=== PATIENT | male | born 1995 | race Caucasian/White ===

== ENCOUNTER 2016-12-26 09:16 | Emergency (ER) | payer OTHER ==
[2016-12-26] MEDS ORDERED: ONDANSETRON 4 MG/2 ML VIAL IVPUSH ONE (09:32)
[2016-12-26] MEDS ORDERED: SODIUM CHLORIDE 1,000 ML IV STA (09:33)
[2016-12-26 09:36] VITALS: BMI 22.1
--- NOTE | 2016-12-26 09:55 | PDOC ---
History of Present Illness - General History Source: Parent(s) Exam Limitations: No Limitations - History of Present Illness Initial Comments: 12/26/16 09:57 The patient is a 21-year-old male, with a significant past medical history of moderate developmental delays, cerebral palsy, epilepsy, and hx of seizures (on carbamazepine, 700 mg), who presents to the ED s/p having a seizure today. Mother states that she gave the pt his seizure medication this morning while at the breakfast table and reports that a few minutes later the patient experienced a seizure and one episode of vomiting. Mother states that the pt is usually very quiet after experiencing a seizure and does vomit throughout the day. Pts seizure was said to be violent, lasting 2-3 minutes, so mother decided to call EMS because she was scared. She denies any bleeding from the mouth, loss of consciousness, or head trauma. Mother states patient has been compliant with his seizure medication and had not had one for a year up until today. Pt was supposed to see his Neurologist later on today but mother called the office to leave a message about what happened this morning. Patient is able to walk but has issues with his left-side. Mother also reports that he has been experiencing cold symptoms for the last week and a associated dry cough. Mother denies that the patient is experiencing any fever, chills, diarrhea, or abdominal pain. Denies any shortness of breath or chest pain. Neurologist: Dr. Yves Albrecht ([facility]) <Virginia Zhang - Last Filed: 12/26/16 10:34> <Eugenia Medina - Last Filed: 12/26/16 12:04> - General Chief Complaint: Seizure Stated Complaint: SEIZURE Time Seen by Provider: 12/26/16 09:27 Past History <Virginia Zhang - Last Filed: 12/26/16 10:34> - Past Medical History Seizures: Yes - Immunization History Immunization Up to Date: Yes - Psycho/Social/Smoking Cessation Hx Anxiety: No Suicidal Ideation: No Smoking History: Never smoked Have you smoked in the past 12 months: No Information on smoking cessation initiated: No Hx Alcohol Use: No Drug/Substance Use Hx: No Substance Use Type: None <Eugenia Medina - Last Filed: 12/26/16 12:04> - Past Medical History Allergies/Adverse Reactions: Allergies Allergy/AdvReac Type Severity Reaction Status Date / Time No Known Allergies Allergy Verified 12/26/16 09:32 Home Medications: Ambulatory Orders Carbamazepine [Tegretol -] 700 mg PO BID 06/25/14 Review of Systems - Review of Systems Able to Perform ROS?: Yes Comments:: 12/26/16 09:58 GENERAL/CONSTITUTIONAL: No fever or chills. No weakness. HEAD, EYES, EARS, NOSE AND THROAT: No change in vision. No ear pain or discharge. No sore throat. CARDIOVASCULAR: No chest pain or shortness of breath. RESPIRATORY: No wheezing, or hemoptysis. (+)Dry cough GASTROINTESTINAL: No diarrhea or constipation. (+)nausea, vomiting GENITOURINARY: No dysuria, frequency, or change in urination. MUSCULOSKELETAL: No joint or muscle swelling or pain. No neck or back pain. SKIN: No rash NEUROLOGIC: No headache, vertigo, loss of consciousness, or change in strength/ sensation. (+)Seizure ENDOCRINE: No increased thirst. No abnormal weight change. HEMATOLOGIC/LYMPHATIC: No anemia, easy bleeding, or history of blood clots. ALLERGIC/IMMUNOLOGIC: No hives or skin allergy. <Virginia Zhang - Last Filed: 12/26/16 10:34> *Physical Exam - Vital Signs Last Vital Signs Temp Pulse Resp BP Pulse Ox 98.7 F 102 H 20 124/72 97 12/26/16 09:32 12/26/16 09:32 12/26/16 09:32 12/26/16 09:32 12/26/16 09:32 - Physical Exam Comments: 12/26/16 09:59 GENERAL: Awake, alert, atraumatic. HEAD: No signs of trauma EYES: PERRLA, EOMI, sclera anicteric, conjunctiva clear ENT: Auricles normal inspection, hearing grossly normal, nares patent, oropharynx clear without exudates. Moist mucosa. NECK: Normal ROM, supple, no lymphadenopathy, JVD, or masses LUNGS: Breath sounds equal, clear to auscultation bilaterally. No wheezes, and no crackles HEART: Regular rate and rhythm, normal S1 and S2, no murmurs, rubs or gallops ABDOMEN: Soft, nontender, normoactive bowel sounds. No guarding, no rebound. No masses EXTREMITIES: Extremities are atraumatic NEUROLOGICAL: Follows commands, speech clear, moves all for extremities. SKIN: Warm, Dry, normal turgor, no rashes or lesions noted <Virginia Zhang - Last Filed: 12/26/16 10:34> - Vital Signs Last Vital Signs Temp Pulse Resp BP Pulse Ox 98.7 F 102 H 20 124/72 97 12/26/16 09:32 12/26/16 09:32 12/26/16 09:32 12/26/16 09:32 12/26/16 09:32 <Eugenia Medina - Last Filed: 12/26/16 12:04> ED Treatment Course - RADIOLOGY Radiology Studies Ordered: 12/26/16 10:34 Chest X-Ray was reviewed by Dr. Medina and over-read by Radiology. Impression: No evidence of active pulmonary disease. <Virginia Zhang - Last Filed: 12/26/16 10:34> - LABORATORY CBC & Chemistry Diagram: 12/26/16 09:57 12/26/16 09:57 <Eugenia Medina - Last Filed: 12/26/16 12:04> Medical Decision Making - Medical Decision Making 12/26/16 09:47 21 yo M h/o cerebral palsy, seizure disorder , currently on tegretol 700 mg bid , here with siezure this am. lasted 3 min. was sitting at the kitchen table. generalized shaking, similar to prior siezures. following pt had emesis and now drowsy, confused, similar to prior postictal periods. no head trauma. no falls. did not bit tongue. last seizure one year ago. did have recent cough, cold like symptoms, and decreased sleep for one week. no fever or chills. no recent change to medications. follows with Dr. albrecht at [facility], had appt this afternoon. on exam, pt awake, moving all four ext. skin warm and dry head atraumatic, lung CTAB no wheeze or crackle, heart RRR no m/r/g. abd soft NT. nuero awake alert, speech clear. moveing all four ext. Facies symmetric. differential: breakthrough seizure due to decreased sleep and recent viral infection, pna, aspiration, electrolyte abnormality. plan cxr labs ivf, lytes. will d/w dr. albrecht. antiemetics as pt has h/o recurrent vomiting following seizures. reload po meds if tolerating po. if not will consider iv keppra. 12/26/16 12:00 pt awake alert back at baseline. left message for dr. albrecht, not in office. given re dose of home medication ( pt mother had with pt ) 700 mg tegretol. level pending. tolerating po. dc to home. <Eugenia Medina - Last Filed: 12/26/16 12:04> *DC/Admit/Observation/Transfer - Attestations Scribe Attestion: 12/26/16 10:02 Documentation prepared by Virginia Zhang, acting as medical consultant for Emergency Dept,Physician, . <Virginia Zhang - Last Filed: 12/26/16 10:34> - Discharge Dispostion Admit: No <Eugenia Medina - Last Filed: 12/26/16 12:04> Diagnosis at time of Disposition: Seizure - Discharge Dispostion Disposition: HOME - Patient Instructions Printed Discharge Instructions: Seizure Disorder -- Adult Additional Instructions: follow up with DR albrecht as scheduled. your tegretol level won't result for 48hours. dr. albrecht can call for results. you can call emergency room [phone] and let them know you were seen in ed on 12/26. return for any persistant vomiting, siezures or any concerns. continue taking tegretol 700 mg twice daily until you follow up with dr. albrecht.
[2016-12-26 10:47] LABS: BASOPHIL 0.4 % (0-2.0); EOSINOPHIL 3.8 % (0-4.5); MCH 29.4 pg (25.7-33.7); MEAN CELL VOLUME 86.6 fl (80-96); MEAN PLT VOLUME 8.6 fl (7.5-11.1); NEUTROPHILS 66.9 % (42.8-82.8); PLATELET COUNT 250 K/MM3 (134-434); RDW 13.4 % (11.9-15.9); WHITE BLOOD COUNT 3.8 K/mm3 (4.0-10.0)
[2016-12-26] MEDS ORDERED: ONDANSETRON 4 MG/2 ML VIAL ONE (11:04)
[2016-12-26 11:24] LABS: ALBUMIN 3.9 g/dl (3.4-5.0); ALK PHOS 118 U/L (45-117); ANION GAP 10 (8-16); BILIRUBIN,TOTAL 0.3 mg/dL (0.2-1.0); CALCIUM 8.8 mg/dL (8.5-10.1); CO2 26 mmol/L (21-32); COCKROFT - GAULT 118.12; CREATININE 0.8 mg/dL (0.7-1.3); GLUCOSE,RANDOM 91 mg/dL (74-106); SGOT/AST 24 U/L (15-37); SGPT/ALT 44 U/L (12-78); TOT PROT 6.9 g/dl (6.4-8.2)
[2016-12-26 13:25] VITALS: BP 108/56; PULSE 68; TEMP 98.4
== END 2016-12-26 12:10 | disposition home or self-care (01) ==
LOC: JER 09:16
PROC: 3E0337Z Introduction of Electrolytic and Water Balance Substance into Peripheral Vein, Percutaneous Approach (ICD-10-PCS; principal; 2016-12-26)
PROC: 3E033GC Introduction of Other Therapeutic Substance into Peripheral Vein, Percutaneous Approach (ICD-10-PCS; 2016-12-26)
DX: G40.802 Other epilepsy, not intractable, without status epilepticus (principal); G80.8 Other cerebral palsy; R62.59 Other lack of expected normal physiological development in childhood
CPT/HCPCS: 36415; 71010-TC; 80053; 80156; 85025; 96361; 96374; 99283-25

== ENCOUNTER 2019-10-02 17:54 | Emergency (ER) | payer OTHER ==
[2019-10-02] MEDS ORDERED: ONDANSETRON 4 MG/2 ML VIAL IVPUSH ONE (18:22)
[2019-10-02] MEDS ORDERED: SODIUM CHLORIDE 0.9% 500 ML INFUS.BAG IV ONE (18:22)
--- NOTE | 2019-10-02 18:26 | PDOC ---
History of Present Illness - General Stated Complaint: SEIZURE Time Seen by Provider: 10/02/19 18:21 History Source: Parent(s), EMS, Family - History of Present Illness Initial Comments: 10/02/19 18:23 24-year-old male, with a significant past medical history of moderate developmental delays, cerebral palsy, epilepsy, and hx of seizures (on carbamazepine, 800/700 mg), who presents to the ED s/p having a generalized seizure today at 5pm. Mother notes he was in his usual state of health, without recent illnesses; last night he went to bed late around 1030pm which is not his usual. at approx 5pm, he had acute onset of generalized tonic clonic seizure lasting about 2-3 minutes, foaming at the mouth and eyes rolling back. no head trauma. has been postictal since, with several episodes of nausea and NBNB emesis of his dinner (pesto and broccoli) after the event. Mother states he takes carbamazepine 800mg in the AM and 700mg in the PM, which he has been compliant with. last PMD visit was [address] Valdes, with normal blood work. His last seizure activity was 2 years ago, with his last neurologist visit in December 2018. She denies any bleeding, loss of consciousness, or head trauma. patient is able to walk but has issues with his left-side due to his spasticity from his CP. Mother denies that the patient is experiencing any fever, chills, diarrhea, or abdominal pain. no dehydration. no cough or congestion. Denies any shortness of breath or chest pain. no sick contacts. Neurologist: Dr. Yves Finley ([facility]) PCP: Dr Valdes ([facility]) 10/02/19 18:29 Past History - Past Medical History Allergies/Adverse Reactions: Allergies Allergy/AdvReac Type Severity Reaction Status Date / Time No Known Allergies Allergy Verified 12/26/16 09:32 Home Medications: Ambulatory Orders Carbamazepine [Tegretol -] 700 mg PO BID 06/25/14 Seizures: Yes - Immunization History Immunization Up to Date: Yes - Psycho Social/Smoking Cessation Hx Smoking History: Never smoked Have you smoked in the past 12 months: No Hx Alcohol Use: No Drug/Substance Use Hx: No Substance Use Type: None Review of Systems - Review of Systems Able to Perform ROS?: No (cerebral palsy/dev delay) *Physical Exam - Physical Exam 10/02/19 18:23 Physical exam General: awake and alert, NAD. postictal. HEENT: NCAT, PERRL, EOMI, clear conjunctiva, anicteric, moist mucus membranes, clear oropharynx, no oral lesions.. Neck: neck supple, FROM Resp: CTAB, normal and even respirations, no respiratory distress CVS: RRR, no murmurs, 2+ peripheral pulses throughout, no peripheral edema Abdomen: soft, NTND, no rebound or guarding. Back: nontender, normal inspection and ROM MSK: no edema, FARLEY x4, ROM intact. No clubbing or cyanosis. normal bulk and increased tone. Extremities: no calf tenderness Neuro: alert, awake, interactive, follows some commands. no focal neurologic deficits, nonverbal. Psych: Calm and cooperative Skin: warm and well perfused, cap refill <2 sec, normal color, no rash or skin discoloration. 10/02/19 18:25 10/02/19 18:44 Heart Score/ECG Review #1 ECG reviewed & interpreted by me at: 18:40 General ECG Interpretation: Sinus Rhythm, Normal Rate, Normal Intervals 10/02/19 18:47 EKG normal sinus rhythm 82 bpm, no interval abnormalities, narrow QRS, ST and T wave segments and morphology normal. Medical Decision Making - Medical Decision Making 10/02/19 18:44 Vital Signs Temp Pulse Resp BP Pulse Ox 98.1 F 88 20 112/83 96 10/02/19 18:33 10/02/19 18:33 10/02/19 18:33 10/02/19 18:33 10/02/19 18:33 Patient had seizure episode here. Vital signs are normal, no fevers, normotensive. He is postictal currently but can follow commands. No focal neurologic deficits. Baseline with left-sided spasticity due to his cerebral palsy otherwise no acute findings., No fevers or systemic features. We will check basic labs, EKG for arrhythmias and interval derangements, carbamazepine level, No head CT imaging at this time as no head trauma and no focal findings and seizure is consistent with his prior presentation of generally tonic-clonic seizures. Most likely trigger is from late night sleep last night lowering his seizure threshold. Attempts have been made to call his neurologist Dr. Finley at [facility], attempts to leave message but unable to with the number provided.. parents are reliable, compliant with his medications. mother has provided all the appropriate medications and care for her child has tegretol 700mg with her now, told her she can administer c/w adequate hydration, sleep and appetite, supportive care told to f/u PCP and his neurologist, Dr Finley, as unable to reach the office on the weekend. Discharge - Discharge Information Problems reviewed: Yes Clinical Impression/Diagnosis: Seizure Condition: Improved Disposition: HOME - Admission No - Follow up/Referral Referrals: Eric Valdes MD [Primary Care Provider] - Yves Finley [Non Staff, Medical] - - Patient Discharge Instructions Patient Printed Discharge Instructions: DI for Seizure Disorder -- Adult Additional Instructions: 1) Please follow-up with your primary care doctor in the next 1-2 days. Please call tomorrow for for any urgent issues. you should follow with Dr Valdes as well as the neurologist, Dr Finley in [place]. 2) You were given a copy of the tests performed today. Please bring the results with you and review them with your primary care doctor. Your laboratory / results were normal, your carbamazepine level is pending as it is a send out 3) If you have any worsening of symptoms or any other concerns please return to the ED immediately. Return if worsening symptoms including fevers, headache, vomiting, visual or hearing disturbances, abdominal pain, chest pain, shortness of breath, syncope, dehydration, inability to take things by mouth/vomiting, altered mental status, or worsening concerning symptoms. 4) Please continue taking your home medications as directed. you should continue with your home dosing of the carbamazepine. make sure to have adequate sleep and eat every meal. Stay well hydrated and rest adequately. Make an appointment. If you cannot follow-up with your primary care doctor please return to the ED - Post Discharge Activity
[2019-10-02] MEDS ORDERED: ONDANSETRON 4 MG/2 ML VIAL ONE (18:27)
[2019-10-02 18:39] VITALS: BP 112/83; PULSE 88; TEMP 98.1; BMI 26.5
[2019-10-02 18:40] LABS: BASO % 0.4 % (0-2.0); EOS % 2.7 % (0-4.5); HEMATOCRIT 46.7 % (35.4-49); HEMOGLOBIN 16.2 GM/dL (11.7-16.9); LYMPH % 39.5 % (8-40); MCH 30.8 pg (25.7-33.7); MCHC 34.6 g/dl (32.0-35.9); MEAN CELL VOLUME 88.9 fl (80-96); MEAN PLT VOLUME 8.9 fl (7.5-11.1); MONO % 6.2 % (3.8-10.2); NEUT % 51.2 % (42.8-82.8); PLATELET COUNT 276 K/MM3 (134-434); RBC 5.26 M/mm3 (4.00-5.60); RDW 13.3 % (11.9-15.9); WHITE BLOOD COUNT 5.3 K/mm3 (4.0-10.0)
--- NOTE | 2019-10-02 19:11 | PDOC ---
*Physical Exam - Vital Signs Last Vital Signs Temp Pulse Resp BP Pulse Ox 98.1 F 88 20 112/83 96 10/02/19 18:33 10/02/19 18:33 10/02/19 18:33 10/02/19 18:33 10/02/19 18:33 ED Treatment Course - LABORATORY CBC & Chemistry Diagram: 10/02/19 18:30 10/02/19 18:30 - ADDITIONAL ORDERS Additional order review: 10/02/19 18:30 RBC 5.26 MCV 88.9 MCHC 34.6 RDW 13.3 MPV 8.9 Neutrophils % 51.2 D Lymphocytes % 39.5 D Monocytes % 6.2 Eosinophils % 2.7 Basophils % 0.4 - Medications Given in the ED: ED Medications Discontinued Medications Generic Name Dose Route Start Last Admin Trade Name Freq PRN Reason Stop Dose Admin Ondansetron HCl 4 mg 10/02/19 18:22 10/02/19 18:32 Zofran Injection IVPUSH 10/02/19 18:23 4 mg ONCE ONE Administration Sodium Chloride 1,000 ml 10/02/19 18:22 10/02/19 18:32 Normal Saline - IV 10/02/19 18:23 1,000 ml ONCE ONE Administration Medical Decision Making - Medical Decision Making 10/02/19 19:[address] Nam. Patient is a 24 yo male w/ pmh of moderate developmental delays, cerebral palsy, epilepsy, and seizures (on carbamazepine, 800/700 mg) who presents for evaluation of seizure today at 5pm. Per mother patient went to bed late last night. Had generalized tonic/clonic seizure for 2- 3 minutes. Reports compliance w/ medications. Last visit w/ PCP 2 days ago and normal. Patient at baseline at this time. Workup negative thus far; currently awaiting CMP for discharge. 10/02/19 19:26 Labs grossly wnl as below. No concern for acute process at this time. Patient will be discharged for further outpatient evaluation as needed. Laboratory Results - last 24 hr 10/02/19 10/02/19 10/02/19 18:30 18:30 18:30 WBC 5.3 RBC 5.26 Hgb 16.2 Hct 46.7 MCV 88.9 MCH 30.8 MCHC 34.6 RDW 13.3 Plt Count 276 MPV 8.9 Absolute Neuts (auto) 2.7 Neutrophils % 51.2 D Lymphocytes % 39.5 D Monocytes % 6.2 Eosinophils % 2.7 Basophils % 0.4 Nucleated RBC % 0 Sodium 139 Potassium 3.6 Chloride 105 Carbon Dioxide 23 Anion Gap 11 BUN 16.0 Creatinine 0.9 Est GFR (CKD-EPI)AfAm 139.04 Est GFR (CKD-EPI)NonAf 119.96 Random Glucose 96 Calcium 9.0 Total Bilirubin 0.2 AST 22 ALT 44 Alkaline Phosphatase 148 H Total Protein 7.7 Albumin 4.2 Carbamazepine 11.2 Discharge - Discharge Information Problems reviewed: Yes Clinical Impression/Diagnosis: Seizure Condition: Improved Disposition: HOME - Follow up/Referral Referrals: Eric Valdes MD [Primary Care Provider] - Yves Finley [Non Staff, Medical] - - Patient Discharge Instructions Patient Printed Discharge Instructions: DI for Seizure Disorder -- Adult Additional Instructions: 1) Please follow-up with your primary care doctor in the next 1-2 days. Please call tomorrow for for any urgent issues. you should follow with Dr Valdes as well as the neurologist, Dr Finley in [place]. 2) You were given a copy of the tests performed today. Please bring the results with you and review them with your primary care doctor. Your laboratory /results were normal, your carbamazepine level is pending as it is a send out 3) If you have any worsening of symptoms or any other concerns please return to the ED immediately. Return if worsening symptoms including fevers, headache, vomiting, visual or hearing disturbances, abdominal pain, chest pain, shortness of breath, syncope, dehydration, inability to take things by mouth/vomiting, altered mental status, or worsening concerning symptoms. 4) Please continue taking your home medications as directed. you should continue with your home dosing of the carbamazepine. make sure to have adequate sleep and eat every meal. Stay well hydrated and rest adequately. Make an appointment. If you cannot follow-up with your primary care doctor please return to the ED - Post Discharge Activity
[2019-10-02 19:17] LABS: ALBUMIN 4.2 g/dl (3.4-5.0); BILIRUBIN,TOTAL 0.2 mg/dL (0.2-1); CREATININE 0.9 mg/dL (0.55-1.3); POTASSIUM 3.6 mmol/L (3.5-5.1); TOT PROT 7.7 g/dl (6.4-8.2)
--- NOTE | 2019-10-03 09:21 | EKG ---
Test Reason : Blood Pressure : / mmHG Vent. Rate : 082 BPM Atrial Rate : 082 BPM P-R Int : 126 ms QRS Dur : 094 ms QT Int : 364 ms P-R-T Axes : 046 062 039 degrees QTc Int : 425 ms NORMAL SINUS RHYTHM NORMAL ECG NO PREVIOUS ECGS AVAILABLE Confirmed by Marge Dominguez ([id number]) on 10/03/2019 9:20:47 AM Referred By: Confirmed By:Marge Dominguez
== END 2019-10-02 19:44 | disposition home or self-care (01) ==
LOC: JER 17:54
PROC: 3E033GC Introduction of Other Therapeutic Substance into Peripheral Vein, Percutaneous Approach (ICD-10-PCS; principal; 2019-10-02)
DX: G40.909 Epilepsy, unspecified, not intractable, without status epilepticus (principal); R11.2 Nausea with vomiting, unspecified; G80.1 Spastic diplegic cerebral palsy; R62.59 Other lack of expected normal physiological development in childhood
CPT/HCPCS: 36415; 80053; 85025; 93005; 93010; 99284-25